=== PATIENT | female | born 1985 | race Caucasian/White ===

== ENCOUNTER → 2017-02-15 | Outpatient (CLI) | payer OTHER ==
[~2017-02-15] MED LIST: DERMOPLAST SPRA56 ML; IBUPROFEN 200200 M1 PO; IRON325 PO; LANOLIN56 GM; NORCO 5-325 TA1 EACH PO; PRENATAL PO; SENNA PO; TUCKS MEDICATE1 EAC1; VALTREX 500 MG500 M1 PO
== END ==
LOC: ULTRA 16:05
DX: N92.0 Excessive and frequent menstruation with regular cycle (principal)

== ENCOUNTER → 2020-12-30 | Outpatient (CLI) | payer OTHER ==
[~2020-12-30] MED LIST changes: +REGLAN10 MG PO; +UNISOM SLEEP AI25 MG PO; +ZOFRAN4 MG PO
[2020-12-30 12:10] VITALS: BP 105/68
[2020-12-30 12:19] LABS: ABSOLUTE NEUTROPHILS 5.5 thou/uL (1.4-8.2); BASOPHILS 0.3 % (0.0-2.0); EOSINOPHILS 0.3 % (0.0-3.0); HEMATOCRIT 35.5 % (37.0-47.0); LYMPHOCYTES 14.9 % (24.0-44.0); MCH 30.1 pg (26.0-34.0); MCHC 33.8 g/dL (28.0-37.0); MONOCYTES 3.1 % (1.0-8.0); PLATELET COUNT 263 thou/uL (150-400); POLYS 81.4 % (36.0-66.0); RBC 3.99 mil/uL (4.20-5.00); RDW 13.1 % (10.5-14.5); WBC 6.7 thou/uL (4.0-11.0)
[2020-12-30 12:32] LABS: ALBUMIN 3.4 g/dL (3.4-5.0); CALCIUM 8.3 mg/dL (8.5-10.1); CREATININE 0.6 mg/dL (0.6-1.0); POTASSIUM 4.3 mmol/L (3.5-5.1); TOTAL BILIRUBIN 0.4 mg/dL (0.2-1.0); TOTAL PROTEIN 7.2 g/dL (6.4-8.2)
[2020-12-30 13:10] VITALS: BP 105/66
[2020-12-30 13:35] VITALS: BP 105/66
--- NOTE | 2020-12-30 17:10 | NUR ---
PT CAME DIRECTLY FROM PCP VISIT WITH CASSIE PASTOR NP WITH C/O CONSTIPATION, DEHYDRATION, WEAKNESS, DIFFICULTY EATING, WT LOSS OF 7LB, (13 WEEKS). ORDERS RECEIVED TO GIVE FLUIDS, DRAW LABS. PT APPEARS TO BE WEAK, SLIGHTLY DIZZY WHEN UP, HAVING TERRIBLE PAIN WITH HEMORRHOIDS. ORDERS COMPLETED, PT ATE A LUNCH MOTHER PICKED UP FROM [employer], AMB TO THE BATHROOM POST FLUIDS, HAD A SMALL BM. IN GENERAL, NOT FEELING ANY BETTER, NO WORSE. LABS FAXED TO [facility], WITH CASSIE PASTOR AND [facility] SPOKE DIRECTLY TO PATIENT POST FLUIDS. DECISION MADE TO LET PT GO HOME AND REST, CALL OFFICE IF NOT FEELING BETTER BY TOMORROW. PT AGREEABLE. DISMISSED IN STABLE CONDITION WITH HER MOTHER. PLANS TO GO HOME TO [place].
== END ==
LOC: OPONC 11:04
PROVIDERS: ATTEND Nurse Practitioner
DX: O26.891 Other specified pregnancy related conditions, first trimester (principal); E86.0 Dehydration; K59.00 Constipation, unspecified; R42 Dizziness and giddiness; R53.1 Weakness; Z3A.13 13 weeks gestation of pregnancy
CPT/HCPCS: 95000